=== PATIENT | male | born 1940 ===

== ENCOUNTER → 2020-02-29 | Outpatient (CLI) | payer MEDICARE | END | disposition home or self-care (01) | LOC: LAB SHORT 12:30 | DX: R35.0 Frequency of micturition (principal) | CPT/HCPCS: 87086 ==

== ENCOUNTER → 2022-02-07 | Outpatient (CLI) | payer MEDICARE | LOC: LAB SHORT 10:15 → LAB 10:15 | DX: R30.0 Dysuria (principal) | CPT/HCPCS: 87086 ==